=== PATIENT | female | born 1955 | race Caucasian/White ===

== ENCOUNTER 2019-12-08 20:16 | Emergency (ER) | payer BC ==
[2019-12-08] MEDS ORDERED: HYDROmorphone 0.5 MG/0.5 ML Syringe IVPUSH ONE ×2 (20:34→22:28)
--- NOTE | 2019-12-08 20:38 | EDM.PDOC ---
ED HPI GENERAL MEDICAL PROBLEM - General Chief Complaint: Chest Pain Stated Complaint: [facility] Time Seen by Provider: 12/08/19 20:20 Source of Information: Reports: Patient History Limitations: Reports: No Limitations - History of Present Illness INITIAL COMMENTS - FREE TEXT/NARRATIVE: This is a 64-year-old female. Last Tuesday on the she was in [place] hiking and fell. She hit her face and fractured her nose she was told she has a concussion and she had bruising to her sternum. She was not having a lot of pain in her sternum until today she was sitting on the grass with her arms back behind her leaning back and stretching out sternal area. She started having increasing pain in her sternum difficulty in taking a breath. She called the ambulance and she took an oxycodone and they gave her 25 of fentanyl continues to complain of severe pain and she pants because it hurts to take a deep breath. She denies any fever or chills she denies any other acute symptoms. Middle Chest Pain Score (Numeric/FACES): 9 - Related Data Allergies Allergy/AdvReac Type Severity Reaction Status Date / Time No Known Allergies Allergy Verified 12/08/19 20:25 Home Meds: Home Meds . [Unable to Verify Home Med List] 12/08/19 [History] ED ROS GENERAL - Review of Systems Review Of Systems: See Below Constitutional: Denies: Fever, Chills HEENT: Reports: Other (Fractured nose) Respiratory: Reports: Shortness of Breath. Denies: Cough Cardiovascular: Reports: Chest Pain Endocrine: Reports: No Symptoms GI/Abdominal: Reports: No Symptoms : Reports: No Symptoms Musculoskeletal: Reports: Foot Pain Skin: Reports: No Symptoms Neurological: Reports: No Symptoms Psychiatric: Reports: No Symptoms Hematologic/Lymphatic: Reports: No Symptoms ED EXAM, GENERAL - Physical Exam Exam: See Below Exam Limited By: No Limitations General Appearance: Alert, WD/WN, Moderate Distress Eye Exam: Bilateral Eye: Normal Inspection Ears: Normal External Exam Nose: Other (He has no deviation of the nose however there is lots of bruising and swelling of the nose and the zygomatic arches bilaterally) Throat/Mouth: Normal Lips, Normal Voice, No Airway Compromise Head: Other (Bruising of the face is noted) Neck: Supple Respiratory/Chest: Lungs Clear, Other (Patient complains of midsternal distally pain when she breathes real deep. 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.) Neurological: Alert, Oriented Psychiatric: Anxious Skin Exam: Warm, Dry Course - Vital Signs Last Recorded V/S: Last Vital Signs Temp 98.1 F 12/08/19 20:22 Pulse 68 12/08/19 20:22 Resp 23 H 12/08/19 20:22 BP 107/58 L 12/08/19 20:22 Pulse Ox 97 12/08/19 20:22 - Orders/Labs/Meds Orders: Active Orders 24 hr Category Date Time Status Chest wo Cont [CT] Stat Exams 12/08/19 21:27 Taken Meds: Medications Discontinued Medications Generic Name Dose Route Start Last Admin Trade Name Krissy PRN Reason Stop Dose Admin Hydromorphone HCl 0.5 mg 12/08/19 20:34 12/08/19 20:42 Dilaudid IVPUSH 12/08/19 20:35 0.5 mg ONETIME ONE Administration Hydromorphone HCl 0.5 mg 12/08/19 22:28 12/08/19 22:47 Dilaudid IVPUSH 12/08/19 22:29 0.5 mg ONETIME ONE Administration - Radiology Interpretation Free Text/Narrative:: CT scan of the chest reveals a mid sternal transverse fracture displaced by 4 mm. There is no rib or spine abnormalities no internal organ abnormalities no pneumothorax or pericardial effusion or hemopericardium. - Re-Assessments/Exams Free Text/Narrative Re-Assessment/Exam: 12/08/19 22:27 I spoke to the patient regarding her CT scan results. She is feeling slightly better but any sort of movement just seems to make it worse. I am going to put her on some Percocet on a every 4 hour basis to get medication into her to take the edge off the pain. I encouraged her to keep ice on her sternum is much as possible and just find the most comfortable position and do not move. She needs to continue to breathe deep so she does not develop pneumonia. She is here on vacation and I encouraged her to go back home to [place]. 12/08/19 22:58 I spoke to the regarding the findings of the sternal fracture. I explained to him that he probably needs to go back to [place] since this is going to be very uncomfortable for the next couple of weeks. I suggested to her that should she needs to sleep sitting up and then when traveling maybe had a 30 degree angle. I will give her some Percocet through the [facility] machine so they have enough to get home. I encouraged her to follow-up with her family doctor as soon as she gets home. Departure - Departure Time of Disposition: 22:59 Disposition: Home, Self-Care 01 Condition: Fair Clinical Impression: Fracture, sternum closed Qualifiers: Encounter type: initial encounter Sternal location: body of sternum Qualified Code(s): S22.22XA - Fracture of body of sternum, initial encounter for closed fracture Nasal fracture Qualifiers: Encounter type: initial encounter Fracture type: closed Qualified Code(s): S02.2XXA - Fracture of nasal bones, initial encounter for closed fracture - Discharge Information *PRESCRIPTION DRUG MONITORING PROGRAM REVIEWED*: Not Applicable *COPY OF PRESCRIPTION DRUG MONITORING REPORT IN PATIENT PRINCESS: Not Applicable Instructions: Sternal Fracture Referrals: PCP,Not In Area [Primary Care Provider] - Forms: ED Department Discharge Additional Instructions: Get the medicines from the [facility] machine before you leave the lobby, take the Percocet faithfully either 1 to 2 tablets every 4-6 hours to take the edge off of the pain. You need to sleep sitting up. Keep ice on the sternum as much as possible but make sure you keep a towel between your skin and the ice so you do not freeze your skin, very gentle movements. Any sort of lifting or movement of your arms is going to cause pain in your chest and breathing deep causes and in the chest so please be careful, as soon as you get home follow-up with your family doctor right away. Sepsis Event Note (ED) - Evaluation Sepsis Screening Result: No Definite Risk - Focused Exam Vital Signs: Vital Signs Temp Pulse Resp BP Pulse Ox 12/08/19 20:22 98.1 F 68 23 H 107/58 L 97 - My Orders Last 24 Hours: My Active Orders 12/08/19 21:27 Chest wo Cont [CT] Stat - Assessment/Plan Last 24 Hours: My Active Orders 12/08/19 21:27 Chest wo Cont [CT] Stat
--- NOTE | 2019-12-09 19:36 | CT ---
CT chest Technique: Multiple axial sections were obtained from above the lung apices inferiorly through the lung bases. Intravenous contrast was not utilized. Reconstructed coronal and sagittal images were obtained. Patient's arms are along the side which cause some artifact. Comparison: No prior chest imaging is available. Findings: Reconstructed sagittal images show a mid sternal fracture with displacement measuring up to 5 mm. No significant retrosternal soft tissue swelling is noted. This finding is best seen on the reconstructed sagittal images. Mild degenerative change is noted within the spine with scoliosis. Aorta shows no aneurysm. No mediastinal or hilar abnormalities are seen. No pericardial thickening is seen. Small portion of the visualized upper abdominal structures show nothing acute. Lungs show no acute parenchymal change. No pleural effusions are noted. No other acute osseous finding is appreciated. Impression: 1. Mildly displaced mid sternal fracture as noted above. 2. Degenerative change and scoliosis within the spine. 3. No other acute finding is seen. Diagnostic code #3 This report was dictated in MDT I agree with preliminary report from [facility], finalized on 12/08/19, 11:13 PM Central Daylight Time
== END 2019-12-08 23:29 | disposition home or self-care (01) ==
LOC: JD.ED 20:16
DX: S22.22XA Fracture of body of sternum, initial encounter for closed fracture (principal); S02.2XXA Fracture of nasal bones, initial encounter for closed fracture; W19.XXXA Unspecified fall, initial encounter
CPT/HCPCS: 71250; 96374; 96376; 99283; J1170